=== PATIENT | male | born 1995 | race Caucasian/White ===

== ENCOUNTER 2017-01-02 09:27 | Emergency (ER) | payer BC ==
[~2017-01-02] VITALS: Ht 182.9 cm; Wt 89.3 kg
[2017-01-02 09:32] VITALS: TEMP 37.2; Ht 182.9 cm; Wt 89.3 kg
[2017-01-02] MEDS ORDERED: KETOROLAC TROMETHAMINE 60 MG/2 ML VIAL IM STA (10:00)
[2017-01-02] MEDS ORDERED: DEXAMETHASONE INJ 10 MG in SYRINGE 0 ML IM STA (10:00)
[2017-01-02] MEDS ORDERED: ACETAMINOPHEN 500 MG TAB PO STA (10:00)
[2017-01-02] MEDS ORDERED: BENZONATATE 100MG CAP PO ONE (10:00)
--- NOTE | 2017-01-02 10:05 | EMERGENCY ROOM VISIT NOTE ---
History Report prepared by Nilay: Ana Guillermo Under the Supervision of: Dr. Omid Garcia M.D. First contact with patient: 09:40 Chief Complaint: CONGESTION Nursing Triage Summary: pt reports nasal congestion has had a course of abx and was feeling better, but after completions sx returned History of Present Illness The patient is a 21 year old white male with no past medical history who presents to the ED with a cc of persistent congestion beginning two days ago. Positive cough, fever, muscle aches. He currently rates his discomfort as a 2/ 10 in severity. The patient states that four weeks ago he initially developed throat and ear congestion. He states that he was seen for his symptoms and started on an antibiotic. The patient states that for three weeks he felt better, but states that his symptoms returned two days ago. He states that he spent all day in bed yesterday. The patient states that he felt better this morning, but noticed lip swelling and hives, noting that the area was itchy. He states that he took some Benadryl for his symptoms. The patient states that he tried using Mucinex for the first times with his symptoms, noting that he has never taken it in the past. He states that he also used Excedrin, but states that he has used that medication in the past. He denies any recent changes in soaps, detergents contacts, or travel. The patient denies any known drug allergies. He denies any tobacco, alcohol, or drug use. Source of History: patient Onset: two days ago Position: other (global) Symptom Intensity: 2/10 Quality: other (congestion) Associated Symptoms: + fevers, + cough Note: Associated Symptoms: muscle aches Review of Systems See HPI for pertinent positives and negatives. A total of ten systems were reviewed and were otherwise negative. Past Medical & Surgical Surgical Problems: (1) [place] teeth extracted Family History Hypertension Social History Smoking Status: Never Smoker Smokeless Tobacco Use: No Alcohol Use: none Drug Use: none Marital Status: single Housing Status: lives with family Occupation Status: [employer] student Current/Historical Medications Scheduled Amoxicillin & Pot Clavulanate (Augmentin 875-125 mg), 875 MG PO BID Prednisone (Prednisone), 50 MG PO DAILY Allergies Coded Allergies: No Known Allergies (Unverified , 01/02/17) Physical Exam Vital Signs Date Time Temp Pulse Resp B/P (MAP) Pulse Ox O2 Delivery O2 Flow Rate FiO2 01/02/17 11:06 76 20 143/77 99 01/02/17 09:32 37.2 102 18 152/95 97 Room Air Physical Exam GENERAL: Awake, alert, well-appearing, NAD HENT: Normocephalic, atraumatic. No pain to palpation of the sinuses. No uvular deviation, posterior pharyngeal swelling EYES: Normal conjunctiva. Sclera non-icteric. NECK: Supple. No nuchal rigidity. FROM. No stridor RESPIRATORY: CTAB, no rhonchi, wheezing, crackles CARDIAC: Borderline tachycardic and regular rhythm, no MRG ABDOMEN: Soft, NTND, BS+ MSK: No chest wall TTP, no LE edema NEURO: GCS 15, CN 2-12 intact, moves all 4s on command SKIN: Blanching, linear area of erythema approximately 3 cm in length, no jaundice noted. Medical Decision & Procedures ER Provider Diagnostic Interpretation: X-ray: Per my interpretation, radiologist review. CHEST ONE VIEW PORTABLE CLINICAL HISTORY: Cough. COMPARISON STUDY: No previous studies for comparison. FINDINGS: Lung volumes are normal. No pneumothorax or pleural effusion is present. Pulmonary vascularity is normal. Cardiomediastinal silhouette is normal. No lobar consolidation. There is minimal right lower lung airspace opacity. IMPRESSION: Minimal right lower lung airspace opacity which could reflect a mild infectious process or atelectasis. Electronically signed by: Vito Kirkland M.D. 01/02/2017 10:39 AM Dictated Date/Time: 01/02/2017 10:37 AM Medications Administered Medications (Trade) Dose Ordered Sig/Danny Route Start Time Stop Time Status Last Admin Dose Admin Ketorolac Tromethamine (Toradol Inj) 60 mg NOW STAT IM 01/02/17 10:00 01/02/17 10:03 DC 01/02/17 10:18 60 MG Acetaminophen (Tylenol Tab) 1,000 mg NOW STAT PO 01/02/17 10:00 01/02/17 10:03 DC 01/02/17 10:17 1,000 MG Benzonatate (Tessalon Perles Cap) 100 mg NOW ONCE PO 01/02/17 10:00 01/02/17 10:03 DC 01/02/17 10:18 100 MG Dexamethasone Sodium Phosphate (Dexamethasone Inj Pf) 10 mg STK-MED ONCE .ROUTE 01/02/17 10:23 01/02/17 10:24 DC 01/02/17 10:26 10 MG Amoxicillin/ Clavulanate Potassium (Augmentin Tab) 875 mg NOW ONCE PO 01/02/17 11:00 01/02/17 11:01 DC 01/02/17 11:06 875 MG ECG Indication: other (congestion) Rate (beats per minute): 74 Rhythm: normal sinus Findings: no ectopy, other (normal intervals, no STS or TWI) ED Course 0952: The patient was evaluated in room B2. A complete history and physical exam was performed. 1103: I reevaluated the patient and he is resting comfortably. I discussed the test results with him and I discussed the treatment plan. He verbalized complete understanding and agreement. The patient is ready for discharge. Medical Decision Triage Nursing notes reviewed. The patient's presentation and history were concerning for URI, pharyngitis, bronchitis, pneumonia, dehydration, allergic reaction. The patient is a 21 year old white male with no past medical history who presents to the ED with a cc of persistent congestion beginning two days ago. Patient was seen and evaluated at the bedside. Patient has been complaining of some sinus congestion. Patient states that he was recently treated proximal prior and was good for couple weeks and then most recently over the last couple of days he is a worsening congestion. Patient has been of cough has been nonproductive. Patient was also concerned about a possible rash as he noticed he developed an itchy area over his left superior iliac crest. Patient did take some Benadryl. Patient states this occurred may be 2 days after he started taking Mucinex. Patient denies any other changes in creams, detergents , medications, or foods. Patient was fairly well-appearing on exam and no blood work was obtained. Patient did receive water, chest x-ray, EKG, and symptom control. Patient chest x-ray concerning for developing infection the right lower lobe. Given that the patient is had some congestion type symptoms in addition the right lower lobe he was given her first dose of Augmentin. Patient tolerated this well. Patient's tachycardia resolved. Patient's EKG was nonischemic. Patient tolerated this well. Given the patient's symptoms most likely to be pneumonia and a possible allergic reaction. Please see was given a dose of prednisone for home after receiving first dose here. Patient was deemed suitable for outpatient follow-up and treatment. Patient was agreeable plan of care and all cautions were answered. Patient was given strict follow-up, discharge, and return precautions. All questions were answered. Patient was deemed suitable for outpatient follow-up at this time. Patient agreed with the plan of care and was safely discharged home. Medication Reconcilliation Current Medication List: was personally reviewed by me Impression Primary Impression: Pneumonia Additional Impression: Upper respiratory infection Scribe Attestation The scribe's documentation has been prepared under my direction and personally reviewed by me in its entirety. I confirm that the note above accurately reflects all work, treatment, procedures, and medical decision making performed by me. Departure Information Dispostion Home / Self-Care Prescriptions Prednisone (PREDNISONE) 50 Mg Tab 50 MG PO DAILY for 4 Days, #4 TAB Prov: Omid Garcia M.D. 01/02/17 Amoxicillin & Pot Clavulanate (Augmentin 875-125 mg) 1 Tab Tab 875 MG PO BID for 7 Days, #14 TAB Prov: Omid Garcia M.D. 01/02/17 Referrals No Doctor, Assigned (PCP) [facility] Forms HOME CARE DOCUMENTATION FORM, IMPORTANT VISIT INFORMATION Patient Instructions ED Upper Resp Infec Abx Tx, My [facility], Pneumonia Additional Instructions Please return to the emergency department if you have worsening or recurrent symptoms not amenable to at-home treatment. Please call for a follow-up appointment with her primary care physician. Please take your medications as prescribed. If you have other concerns and/or complaints please feel free to also call your primary care physician's office or return the ED for further evaluation, management, and treatment. You may take 600 mg Ibuprofen every 6 hours as needed for pain with food for no more than 2 consecutive days. You may take tylenol 1000 mg every 6 hours as needed for pain. You may take motrin and tylenol separately or at the same time. Continue over the counter treatment for sinus congestion which may include sudafed (no more than 2 days) and saline sprays. Take you steroids preferably with food in AM. Take your medications as prescribed. If taking an antibiotic consider taking a probiotic and/or eating yogurt, but at the least, please take with food as it can cause upset stomach. You have been examined and treated today on an emergency basis only. This is not a substitute for, or an effort to provide, complete comprehensive medical care. It is impossible to recognize and treat all injuries or illnesses in a single emergency department visit. It is therefore important that you follow up closely with [facility], your PCP, and/or your specialist(s). Call as soon as possible for an appointment. Thank you for your time and consideration. I look forward to speaking with you again soon. Please don't hesitate to call us if you have any questions. Problem Qualifiers Primary Impression: Pneumonia Pneumonia type: due to unspecified organism Laterality: right Lung location : lower lobe of lung Qualified Codes: J18.1 - Lobar pneumonia, unspecified organism Additional Impression: Upper respiratory infection URI type: acute nasopharyngitis (common cold) Qualified Codes: J00 - Acute nasopharyngitis [common cold]
[2017-01-02] MEDS ORDERED: DEXAMETHASONE **PF** INJ 10 MG/ML VIAL ONE (10:23)
--- NOTE | 2017-01-02 10:40 | DIAGNOSTIC IMAGING REPORT ---
CHEST ONE VIEW PORTABLE CLINICAL HISTORY: Cough. COMPARISON STUDY: No previous studies for comparison. FINDINGS: Lung volumes are normal. No pneumothorax or pleural effusion is present. Pulmonary vascularity is normal. Cardiomediastinal silhouette is normal. No lobar consolidation. There is minimal right lower lung airspace opacity. IMPRESSION: Minimal right lower lung airspace opacity which could reflect a mild infectious process or atelectasis. Electronically signed by: Vito Kirkland M.D. 01/02/2017 10:39 AM Dictated Date/Time: 01/02/2017 10:37 AM
[2017-01-02] MEDS ORDERED: AMOXICILLIN/CLAVULANATE TAB 875 MG TAB PO ONE (11:00)
[2017-01-02 11:06] VITALS: BP 143/77; PULSE 76; O2SAT 99
[2017-01-02] MEDS ORDERED: AMOX875T PO (11:26)
[2017-01-02] MEDS ORDERED: PRED50TA PO (11:26)
== END 2017-01-02 11:34 | disposition home or self-care (01) ==
LOC: C.EDB 09:31
DX: J18.1 Lobar pneumonia, unspecified organism (principal); J00 Acute nasopharyngitis [common cold]; Z98.818 Other dental procedure status; Z82.49 Family history of ischemic heart disease and other diseases of the circulatory system

== ENCOUNTER 2017-01-21 12:06 | Emergency (ER) | payer BC ==
[~2017-01-21] VITALS: Ht 185.4 cm; Wt 84.7 kg
[2017-01-21 12:11] VITALS: Ht 185.4 cm; Wt 84.7 kg
[2017-01-21] MEDS ORDERED: NUTRPAK70 (12:41)
[2017-01-21] MEDS ORDERED: PRD/25 PO (12:41)
[2017-01-21] MEDS ORDERED: VNTHFA/IN INH (12:41)
--- NOTE | 2017-01-21 13:04 | DIAGNOSTIC IMAGING REPORT ---
CHEST ONE VIEW PORTABLE HISTORY: 21 years-old Male Evaluate Fever/Sepsis acute fever with sepsis COMPARISON: Chest radiograph 01/02/2017 TECHNIQUE: Portable AP view of the chest FINDINGS: Cardiomediastinal and hilar silhouettes are within normal limits. There is no pneumothorax, or pleural effusion. No lobar airspace consolidations. Subtle opacity of the lateral right lung base is again seen which appears slightly improved. Bones of the chest are grossly intact. IMPRESSION: Subtle subsegmental ill-defined opacity of the lateral right lung base has mildly improved from comparison exam. The study is otherwise non-acute. The above report was generated using voice recognition software. It may contain grammatical, syntax or spelling errors. Electronically signed by: Chemo Gonzalez M.D. 01/21/2017 1:02 PM Dictated Date/Time: 01/21/2017 1:01 PM
[2017-01-21 14:45] LABS: BASO % 0.1 %; BASO ABS # 0.01 K/uL (0-0.2); COMPLETE YES; EOS % 0.1 %; HEMATOCRIT 44.2 % (42-52); IG% 0.2 %; LYMPH % 8.7 %; LYMPH ABS # 1.14 K/uL (1.2-3.4); MEAN CELL VOLUME 87.2 fL (80-100); MEAN CORPUSCULAR HEMOGLOBIN 31.6 pg (25-34); MEAN CORPUSCULAR HGB CONC 36.2 g/dl (32-36); MEAN PLATELET VOLUME 9.4 fL (7.4-10.4); MONO % 1.4 %; NEUT % 89.5 %; PLATELET COUNT 259 K/uL (130-400); RED BLOOD COUNT 5.07 M/uL (4.7-6.1); WHITE BLOOD COUNT 13.17 K/uL (4.8-10.8)
[2017-01-21 15:24] LABS: BLOOD UREA NITROGEN 16 mg/dl (7-18); BUN/CREATININE RATIO 16.4 (10-20); CALCIUM 9.5 mg/dl (8.5-10.1); CARBON DIOXIDE 21 mmol/L (21-32); CHLORIDE 106 mmol/L (98-107); CREATININE 0.99 mg/dl (0.60-1.40); GLUCOSE 102 mg/dl (70-99); POTASSIUM 3.3 mmol/L (3.5-5.1); SODIUM 135 mmol/L (136-145)
--- NOTE | 2017-01-21 16:15 | EMERGENCY ROOM VISIT NOTE ---
History Report prepared by Nilay: Tony Huang Under the Supervision of: Dr. Ugo Zuniga D.O. First contact with patient: 12:36 Chief Complaint: RESPIRATORY PROBLEMS Stated Complaint: RESPITORY DISTRESS Nursing Triage Summary: Pt states recently dx with pnx. Pt states, "I was recovering pretty well from the pnx, but I think it gave me some inflammation. My doctor gave me steroids and an inhaler, but I have asthma attacks so I think the medicine is not sufficient." Denies hx of asthma. Pt reports chest tightness. History of Present Illness The patient is a 21 year old male who presents to the Emergency Room with complaints of constant respiratory difficulties starting a few days ago. The patient states that three weeks ago he was diagnosed with pneumonia and put on antibiotics and a steroid. He states that he was doing well for a day or two, and then the symptoms came back so he was put back on steroids. He states that he is currently on the steroids, and he is having fatigue and some shortness of breath. The patient reports that a few days ago he got back to school, and just walking around his room he was having asthma attacks, and he used his inhaler which eventually helped after an hour and lying down. He states that he has been having some chest pain, though he denies any leg swelling or leg pain. The patient does not have any chronic medical problems. Source of History: patient Onset: a few days ago Position: other (global) Quality: other (respiratory difficulty) Timing: constant Modifying Factors (Worsening): other (walking around his room) Associated Symptoms: + SOB, + fatigue Review of Systems See HPI for pertinent positives & negatives. A total of 10 systems reviewed and were otherwise negative. Past Medical & Surgical Surgical Problems: (1) [place] teeth extracted Family History Hypertension Social History Smoking Status: Current Some Day Smoker Alcohol Use: none Drug Use: none Marital Status: single Housing Status: lives with family Occupation Status: [employer] student Current/Historical Medications Scheduled Albuterol Hfa (Ventolin Hfa), 2-4 PUFFS INH Q6H Miscellaneous Medications Nutritional Supplements (Cold And Flu) Prednisone (Prednisone), 2.5 MG PO Allergies Coded Allergies: No Known Allergies (Unverified , 01/02/17) Physical Exam Vital Signs Date Time Temp Pulse Resp B/P (MAP) Pulse Ox O2 Delivery O2 Flow Rate FiO2 01/21/17 15:00 68 18 135/76 99 Room Air 01/21/17 13:02 79 01/21/17 12:14 99 Room Air 01/21/17 12:11 36.4 83 18 143/93 99 Room Air Physical Exam CONSTITUTIONAL/VITAL SIGNS: Reviewed / noted above. GENERAL: Non-toxic in appearance. INTEGUMENTARY: Warm, dry, and [place]. HEAD: Normocephalic. EYES: without scleral icterus or trauma. ENT/OROPHARYNX: clear and moist. LYMPHADENOPATHY/NECK: Is supple without lymphadenopathy or meningismus. RESPIRATORY: Lungs clear and equal. CARDIOVASCULAR: Regular rate and rhythm. GI/ABDOMEN: Soft and nontender. No organomegaly or pulsatile mass. No rebound or guarding. Normal bowel sounds. EXTREMITIES: Warm and well perfused. BACK: No CVA tenderness. NEUROLOGICAL: Intact without focal deficits. PSYCHIATRIC: normal affect. MUSCULOSKELETAL: Normally developed with good muscle tone. Medical Decision & Procedures ER Provider Diagnostic Interpretation: Radiology results as stated below per my review and radiologist interpretation: CHEST ONE VIEW PORTABLE HISTORY: 21 years-old Male Evaluate Fever/Sepsis acute fever with sepsis COMPARISON: Chest radiograph 01/02/2017 TECHNIQUE: Portable AP view of the chest FINDINGS: Cardiomediastinal and hilar silhouettes are within normal limits. There is no pneumothorax, or pleural effusion. No lobar airspace consolidations. Subtle opacity of the lateral right lung base is again seen which appears slightly improved. Bones of the chest are grossly intact. IMPRESSION: Subtle subsegmental ill-defined opacity of the lateral right lung base has mildly improved from comparison exam. The study is otherwise non-acute. The above report was generated using voice recognition software. It may contain grammatical, syntax or spelling errors. Electronically signed by: Chemo Gonzalez M.D. 01/21/2017 1:02 PM Dictated Date/Time: 01/21/2017 1:01 PM Laboratory Results 01/21/17 13:15 Red Blood Count 5.07, Mean Corpuscular Volume 87.2, Mean Corpuscular Hemoglobin 31.6, Mean Corpuscular Hemoglobin Concent 36.2, Mean Platelet Volume 9.4, Neutrophils (%) (Auto) 89.5, Lymphocytes (%) (Auto) 8.7, Monocytes (%) (Auto) 1.4, Eosinophils (%) (Auto) 0.1, Basophils (%) (Auto) 0.1, Neutrophils # (Auto) 11.79, Lymphocytes # (Auto) 1.14, Monocytes # (Auto) 0.19, Eosinophils # (Auto) 0.01, Basophils # (Auto) 0.01 01/21/17 13:15 Test 01/21/17 13:15 White Blood Count 13.17 K/uL (4.8-10.8) Red Blood Count 5.07 M/uL (4.7-6.1) Hemoglobin 16.0 g/dL (14.0-18.0) Hematocrit 44.2 % (42-52) Mean Corpuscular Volume 87.2 fL (80-100) Mean Corpuscular Hemoglobin 31.6 pg (25-34) Mean Corpuscular Hemoglobin Concent 36.2 g/dl (32-36) Platelet Count 259 K/uL (130-400) Mean Platelet Volume 9.4 fL (7.4-10.4) Neutrophils (%) (Auto) 89.5 % Lymphocytes (%) (Auto) 8.7 % Monocytes (%) (Auto) 1.4 % Eosinophils (%) (Auto) 0.1 % Basophils (%) (Auto) 0.1 % Neutrophils # (Auto) 11.79 K/uL (1.4-6.5) Lymphocytes # (Auto) 1.14 K/uL (1.2-3.4) Monocytes # (Auto) 0.19 K/uL (0.11-0.59) Eosinophils # (Auto) 0.01 K/uL (0-0.5) Basophils # (Auto) 0.01 K/uL (0-0.2) RDW Standard Deviation 40.7 fL (36.4-46.3) RDW Coefficient of Variation 12.9 % (11.5-14.5) Immature Granulocyte % (Auto) 0.2 % Immature Granulocyte # (Auto) 0.03 K/uL (0.00-0.02) D-Dimer < 190 ug/L FEU (0-500) Anion Gap 8.0 mmol/L (3-11) Est Creatinine Clear Calc Drug Dose 134.5 ml/min Estimated GFR () 126.5 Estimated GFR (Non- 109.2 BUN/Creatinine Ratio 16.4 (10-20) Calcium Level 9.5 mg/dl (8.5-10.1) Troponin I < 0.015 ng/ml (0-0.045) Thyroid Stimulating Hormone (TSH) 0.470 uIu/ml (0.300-4.500) Laboratory results as stated above per my review. ECG Indication: SOB/dyspnea Rate (beats per minute): 73 Rhythm: normal sinus Findings: no ectopy, other (Sinus arrhythmia, no acute injury) ED Course 1236: Previous medical records were reviewed. The patient was evaluated in room B3. A complete history and physical examination was performed. 1536: I talked with the patient's mother per his request. 1617: On reevaluation, the patient is doing well. I discussed the results and findings with the patient. He verbalized agreement of the treatment plan. He was discharged home. Medical Decision the differential was considered includes acute myocardial infarction, acute coronary syndrome, myocarditis, pericarditis, pericardial effusions /tamponade, esophageal perforation, pulmonary embolism, pneumonia, pneumothorax, cardiomyopathy, congestive heart, anemia , COPD/asthma exacerbation. This is a 21-year-old male who presents to the ED with a chief complaint of generalized malaise and weakness. He reports that he was diagnosed with pneumonia 3 weeks ago. He was started on antibiotics and steroids. He went home over the s to [place] where he was seen in the emergency department twice. He was placed on a longer course of steroids and put on inhalers. The patient just finished his fifth day of prednisone 50 mg and is currently on a taper. The patient has no other specific complaints. Vital signs are stable. His physical exam was unremarkable. The white blood cell count was 13. D-dimer was negative. Chest x-ray reveals an infiltrate in the lateral right lung base mildly improved from the prior x-ray on the . The patient has normal chemistry panels. I spoke with the patient's mother, per his request. She has plans to take him out of the school for the semester because he feels like he cannot function. He was referred to his PCP and is felt to be stable for discharge. Impression Primary Impression: Weakness Additional Impression: Malaise Scribe Attestation The scribe's documentation has been prepared under my direction and personally reviewed by me in its entirety. I confirm that the note above accurately reflects all work, treatment, procedures, and medical decision making performed by me. Departure Information Dispostion Home / Self-Care Referrals Gerber Taveras Jr, MD (PCP) Forms HOME CARE DOCUMENTATION FORM, IMPORTANT VISIT INFORMATION, WORK / SCHOOL INSTRUCTIONS Patient Instructions My [facility] Additional Instructions Follow-up with your doctor for further care and evaluation in 1-2 days. Return to the emergency department for worsening or new symptoms or any concerns. You have been examined and treated today on an emergency basis only. This is not a substitute for, or an effort to provide, complete comprehensive medical care. It is impossible to recognize and treat all injuries or illnesses in a single emergency department visit. It is therefore important that you follow up closely with your doctor. Call as soon as possible for an appointment. Problem Qualifiers
[2017-01-21 16:57] VITALS: BP 140/75; PULSE 78; O2SAT 98
== END 2017-01-21 16:59 | disposition home or self-care (01) ==
LOC: C.EDB 12:07
DX: R53.1 Weakness (principal); R53.81 Other malaise; R06.02 Shortness of breath; Z82.49 Family history of ischemic heart disease and other diseases of the circulatory system; F17.200 Nicotine dependence, unspecified, uncomplicated